=== PATIENT | male | born 1985 | race Caucasian/White ===

== ENCOUNTER 2021-10-20 04:30 | Emergency (ER) | payer BC, SELFPAY ==
[2021-10-20 04:34] VITALS: BP 151/91; PULSE 84; RESP 18; TEMP 36.2; O2SAT 100
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
[2021-10-20] MEDS: Bacitracin 30 GM TUBE TP (05:03)
== END 2021-10-20 05:03 | disposition home or self-care (01) ==
LOC: ER 05:05
PROVIDERS: Emergency Provider Emergency Medicine; PCP Nurse Practitioner Family
DX: T23.152A Burn of first degree of left palm, initial encounter (principal); T23.122A Burn of first degree of single left finger (nail) except thumb, initial encounter; W86.0XXA Exposure to domestic wiring and appliances, initial encounter; X16.XXXA Contact with hot heating appliances, radiators and pipes, initial encounter; T31.0 Burns involving less than 10% of body surface
CPT/HCPCS: 99282; 99283

== ENCOUNTER 2024-07-26 03:36 | Emergency (ER) | payer BC, SELFPAY ==
[2024-07-26 03:38] VITALS: BP 150/101; PULSE 83; RESP 16; TEMP 36.5; O2SAT 98
--- NOTE | 2024-07-26 04:12 | ED.GENADUL_ITS ---
Discharge Plan Disposition Patient Disposition: Home Condition: Good Discharge Details Clinical Impression: Back pain Primary Care Provider: Maida Duff ED Provider: Scarlett Hernandez Home Meds and New Rx's Prescriptions: New cyclobenzaprine 5 mg tablet 5 mg PO TID PRNQty: 20 0RF Discontinued bacitracin 500 unit/gram ointment 1 applic topical TID Qty: 30 0RF Discharge Instructions Instructions: Low Back Pain ED Additional Instructions: Tylenol and ibuprofen over the counter for pain; follow the directions on the bottle. Cyclobenzaprine up to every 8 hours as needed for muscle spasm. Do not drive while you are taking this. Call your primary care doctor today to schedule an appointment for within the next 72 hours to followup on your visit here. Return to the emergency department for new or worsening symptoms including inability to walk, urinary incontinence, numbness or weakness in your legs, or if you have any other concerns. Referrals: Maida Duff [Primary Care Provider] - [facility] General Mode of arrival: ambulatory . Date/Time Provider Initiated Documentation: 07/26/24 03:45 . Limitations to Documentation: no limitations . Information obtained by: patient . HPI Narrative: 39yo M presenting with left low lumbar back pain. First noted left sided low benjie k pain about a week ago after moving boxes. Has been persistent since then, mildly worsening. This evening noted increasing stiffness and more severe pain, unable to get comfortable, unable to sleep. Pain is dull, severe, and radiates into his left hip and thigh. No numbness, tingling, or weakness. No bowel or bladder difficulties. No hx of IVDU use or spinal instrumentation. Otherwise in his usual state of health with no fevers, chills, rash, nausea, vomiting, abdominal pain, or other concerns. Related Data Home Medications ?Medication ?Instructions ?Recorded ?Confirmed cyclobenzaprine 5 mg tablet 5 mg PO TID PRN #20 tabs 07/26/24 Previous Rx's ?Medication ?Instructions ?Recorded cyclobenzaprine 5 mg tablet 5 mg PO TID PRN #20 tabs 07/26/24 Allergies Allergy/AdvReac Type Severity Reaction Status Date / Time No Known Allergies Allergy Unverified 07/26/24 03:45 General Stated Complaint: Nk/Back Pain LETHA: 3 Review of Systems Narrative: see HPI Exam Narrative Exam Narrative: General: Alert, well appearing, well nourished, in no acute distress. Head: Normocephalic, atraumatic Neck: Trachea midline, ?Neck supple. Cardiac: ?No cyanosis. Resp: No respiratory distress. Speaking in full sentences. Abd: ?Soft, non-distended, nontender : ?No suprapubic tenderness. No CVA tenderness. Extremities: ?No deformities.? No peripheral edema. Back: Left lumbar parspinal tenderness and palpable spasm. Neuro: ? Motor- 5/5 strength symmetric bilateral lower extremities Sensation- ?Intact to light touch and symmetric multiple dermatomes bilateral lower extremities, no saddle anesthesia. Reflexes- 2/4 achilles & patellar, no clonus Gait/station: ?Normal stance.? No truncal ataxia. Steady gait with equal normal steps Course Vital Signs Vital signs: Vital Signs Temperature 36.5 C 07/26/24 03:38 Pulse 83 07/26/24 03:38 Respiratory Rate 16 07/26/24 03:38 Blood Pressure 150/101 H 07/26/24 03:38 Pulse Oximetry 98 07/26/24 03:38 Temperature 36.5 C 07/26/24 03:38 Temperature Source Oral 07/26/24 03:38 Pulse 83 07/26/24 03:38 Respiratory Rate 16 07/26/24 03:38 Respiratory Effort Normal, Non-Labored 07/26/24 03:42 Blood Pressure 150/101 H 07/26/24 03:38 Blood Pressure Position Standing 07/26/24 03:38 Pulse Oximetry 98 07/26/24 03:38 Oxygen Delivery Method Room Air 07/26/24 03:38 Oxygen Flow Rate 0 07/26/24 03:38 Pain Level 8 07/26/24 03:42 Medical Decision Making 39yo M presenting with left low lumbar back pain, onset after moving boxes. Vital signs reassuring on arrival, palpable left lumbar parsaspinal spasm on exam. Normal neurologic exam. No red flags on history or exam for back pain. Not suggestive of spinal epidural hematoma, epidural abscess, cauda equina. No indication for labs or CT/MRI imaging. Will treat with lidocaine patch, tylenol, toradol, diazepam. On reassessment pt reports feeling improved, requesting discharge home. Discharged with short course of cyclobenzaprine and advised to followup with PCP. Discharge instructions and return precautions were reviewed with patient who verbalized understanding. All questions were answered and he is in full a greement with the plan. Quality:SDOH Health Related Social Needs: No Data to Display PFSH All Active Problems (Updated 07/26/24 @ 05:18 by Scarlett Hernandez MD) Back pain (Acute) Social History Smoking/Tobacco Use Status: Never Smoking risk assessment performed?: Yes Alcohol Intake: never Drug use: Never Substance use type: does not use Housing: house Do you feel safe at home: Yes Do you feel safe in your relationship?: Yes
[2024-07-26] MEDS: Acetaminophen 500 MG TAB 1000 MG PO (04:15)
[2024-07-26] MEDS: Lidocaine 5% Patch 1 PATCH TP (04:15)
[2024-07-26] MEDS: Ketorolac 15 MG/ML VIAL IM (04:16)
[2024-07-26] MEDS: diazePAM 5 MG TAB PO (04:16)
== END 2024-07-26 05:37 | disposition home or self-care (01) ==
PROVIDERS: Emergency Provider Student in an Organized Health Care Education/Training Program; PCP Nurse Practitioner Family
DX: M54.50 Low back pain, unspecified (principal)
CPT/HCPCS: 96372; 99283; J1885

== ENCOUNTER 2024-08-15 23:33 | Outpatient (REF) | payer BC, SELFPAY | END 2024-08-15 23:34 | disposition home or self-care (01) | LOC: LBN 23:33 | PROVIDERS: PCP Nurse Practitioner Family; Visit Provider Physician Assistant Medical | DX: Z20.818 Contact with and (suspected) exposure to other bacterial communicable diseases (principal) | CPT/HCPCS: 87077; 87070 ==